=== PATIENT | male | born 1985 | race American Indian/Alaskan Native ===

== ENCOUNTER 2017-09-11 14:41 | Emergency (ER) | payer BC, OTHER ==
[~2017-09-11] VITALS: Ht 175.3 cm; Wt 117.9 kg
[~2017-09-11 14:41] MED LIST: CETIRIZINE HCL10 MG PO; FIBER350 GM PO; HYDROXYZINE PAM25 MG PO; PRILOSEC20 MG PO; TRIAMCINOLONE A15 GM TOP
== END 2017-09-11 15:00 | disposition home or self-care (01) ==
LOC: ED 14:41
DX: S61.412A Laceration without foreign body of left hand, initial encounter (principal); W18.30XA Fall on same level, unspecified, initial encounter

== ENCOUNTER 2019-12-01 18:27 | Emergency (ER) | payer BC, OTHER ==
[~2019-12-01] VITALS: Ht 175.3 cm; Wt 107.5 kg
[2019-12-01] MEDS ORDERED: ZYRTEC10 M3 (18:39)
[2019-12-01] MEDS ORDERED: FLONASE ALLERG9.9 ML NAS (18:40)
[2019-12-01] MEDS ORDERED: VITAMIN D22000 UNIT PO (18:40)
== END 2019-12-01 21:21 | disposition home or self-care (01) ==
LOC: ED 18:27
DX: F41.0 Panic disorder [episodic paroxysmal anxiety] (principal); Z88.0 Allergy status to penicillin; Z79.899 Other long term (current) drug therapy
CPT/HCPCS: 99283

== ENCOUNTER 2022-02-09 07:33 | Emergency (ER) | payer BC, OTHER ==
[~2022-02-09] VITALS: Ht 175.3 cm; Wt 107.5 kg
[~2022-02-09 07:33] MED LIST changes: +FLONASE ALLERG9.9 ML NAS; +VITAMIN D22000 UNIT PO; +ZYRTEC10 M3
== END 2022-02-09 08:10 | disposition home or self-care (01) ==
LOC: ED 07:33
DX: J06.9 Acute upper respiratory infection, unspecified (principal); Z88.0 Allergy status to penicillin; Z88.1 Allergy status to other antibiotic agents
CPT/HCPCS: 99283

== ENCOUNTER 2022-11-30 07:43 | Day surgery (SDC) | payer BC, OTHER ==
[~2022-11-30] VITALS: Ht 175.3 cm; Wt 109.8 kg
[~2022-11-30 07:43] MED LIST changes: +OMEPRAZOLE20 MG PO; +VENTOLIN HFA18 GM INH; +VITAMIN D350 MC3 PO; +ZESTRIL5 MG PO
--- NOTE | 2022-11-30 10:25 | NUR ---
11/30/22 1025 Ramila Mitchell 1004 PT ARRIVED IN PACU AWAKE WITH NO C/O'S. 1015 SNORING. REU. 1025 AWAKENS TO VERBAL STIMULI, THEN FALLS BACK TO SLEEP.
--- NOTE | 2022-12-01 07:24 | OR ---
[facility] [address], [place] [address] Signed DATE OF OPERATION: 11/30/2022 SURGEON: Jeanine Tolliver MD PREOPERATIVE DIAGNOSES: 1. Hiatal hernia 2013 at age 28. 2. Chronic epigastric abdominal pain. 3. Chronic heartburn. 4. Anxiety and stress. 5. Irritable bowel syndrome with constipation. POSTOPERATIVE DIAGNOSES: 1. Small hiatal hernia (40-37 cm). 2. GE junction at 37 cm. PROCEDURE: EGD with CLOtest and biopsies of the pyloric bulb, antrum and GE junction. ESTIMATED BLOOD LOSS: None. INDICATIONS: Olive is a 36-year-old gentleman, asked to see me for a repeat upper endoscopy. I helped him in 2013 at the age of 28. When we reviewed his records together, he has the identical symptoms from that time. We found just a small hiatal hernia with a little gastritis and negative CLOtest. He had done well with Versed and fentanyl. He feels that his symptoms are related to stress and his weight. He therefore started to alter his diet and exercising and he has lost 15 pounds. He said that has helped. He has been working with his primary care provider. He and his girlfriend now have two children, both under the age of 2. He said that is stressful as well. 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 He said that has been stressful and he is currently applying to change jobs. He told me about the anxiety and then his constipation. He said he uses Metamucil three days a week. He is afraid to use MiraLAX because it might cause diarrhea while he is at work. He has had a negative gallbladder ultrasound. He said he was never tested for sleep apnea. He said he still has epigastric abdominal pain with some heartburn. He said he was so anxious the other day that he could not even swallow food. He spent a lot of time talking to me about his anxiety. He did not realize this medication and counseling in that regard. He went home and talked to his girlfriend and found out she is on anxiety medication. He told me that this morning he has been scheduled to go see mental health counselor and more Electronically Signed By: JEANINE TOLLIVER MD 12/01/22 0724 PATIENT NAME: OLIVE BARBOSA III OPERATIVE REPORT DATE OF : 89 REPORT #: [id number] PHYSICIAN: JEANINE TOLLIVER MD PCP: [facility] REPORT IS CONFIDENTIAL AND NOT TO BE RELEASED WITHOUT AUTHORIZATION [facility] [address], [place] [address] Signed than likely start some medication. He seemed very excited to tell me that this morning. In the office, I gave him a brochure on upper endoscopy. He recalls the test well. There is risk including, but not limited to gas bloating, crampy abdominal pain, bleeding, perforation requiring surgery, and missed diagnosis. He recalls the need for IV conscious sedation. He had expressed understanding and wished to proceed. PROCEDURE NOTE: Olive was taken into our endoscopy suite and placed in the supine semi-recumbent position. The posterior oropharynx was anesthetized with lidocaine spray. A bite block was utilized for the case. He was given 8 mg of Versed and 100 mcg of fentanyl to cover the case. It took a while to overcome his anxiety. We were able to pass the scope then under direct visualization out into the third portion of the duodenum without difficulty. The duodenum and pyloric channel were unremarkable. There might have been just a little bit of irritation in his pyloric polyps. We took a biopsy in that area. We took an additional biopsy of the antrum for pathologic review as well as CLOtest. There were no ulcerations. Upon retroflexion of scope once again, we can see a small hiatal hernia. It measured from 40 cm back to 37 cm. The scope was then withdrawn up through the area of the GE junction, which was compliant without stricture. There was no gastric or esophageal varices. The Z-line has minimal disruption at 37 cm. There was no Lindsey's mucosa. There was no distal esophagitis. The middle and upper esophagus were unremarkable. After this, the gas was suctioned out. The colonoscope in the gastroscope removed. Olive tolerated his procedure well. RECOMMENDATIONS: I will see Olive back in my office in 7 to 14 days to review his results. It appears like he has discovered the etiology of the symptoms related to his anxiety. Jeanine Tolliver MD ALB/MODL /[id number] cc: [facility] [address] Jeanine Tolliver MD Electronically Signed By: JEANINE TOLLIVER MD 12/01/22 0724 PATIENT NAME: OLIVE BARBOSA III OPERATIVE REPORT DATE OF : 89 REPORT #: [id number] PHYSICIAN: JEANINE TOLLIVER MD PCP: [facility] REPORT IS CONFIDENTIAL AND NOT TO BE RELEASED WITHOUT AUTHORIZATION [facility] [address] [place], [place] [address] Signed Copies: JEANINE TOLLIVER MD ~ Electronically Signed By: JEANINE TOLLIVER MD 12/01/22 0724 PATIENT NAME: OLIVE BARBOSA JESSICA OPERATIVE REPORT DATE OF : 89 REPORT #: [id number] PHYSICIAN: JEANINE TOLLIVER MD PCP: [facility] REPORT IS CONFIDENTIAL AND NOT TO BE RELEASED WITHOUT AUTHORIZATION
== END 2022-11-30 11:00 | disposition home or self-care (01) ==
LOC: OPS 07:43 → DS 07:47 → OPS 08:55 → DS 09:45 → OPS 09:45
PROVIDERS: ATTEND Colon & Rectal Surgery
PROC: 0DB78ZX Excision of Stomach, Pylorus, Via Natural or Artificial Opening Endoscopic, Diagnostic (ICD-10-PCS; principal; 2022-11-30 09:30)
DX: K44.9 Diaphragmatic hernia without obstruction or gangrene (principal); K29.50 Unspecified chronic gastritis without bleeding; K20.90 Esophagitis, unspecified without bleeding; F41.9 Anxiety disorder, unspecified; I10 Essential (primary) hypertension; E66.9 Obesity, unspecified; Z68.33 Body mass index [BMI] 33.0-33.9, adult; Z88.0 Allergy status to penicillin; Z88.2 Allergy status to sulfonamides; Z79.899 Other long term (current) drug therapy
CPT/HCPCS: 36415; 87077; G0500; J2250; J3010; J7121

== ENCOUNTER 2022-12-27 08:32 | Emergency (ER) | payer BC, OTHER ==
[~2022-12-27] VITALS: Ht 175.3 cm; Wt 106.1 kg
[2022-12-27] MEDS ORDERED: ESCITALOPRAM OX10 MG PO (09:05)
== END 2022-12-27 09:35 | disposition home or self-care (01) ==
LOC: ED 08:32
DX: F41.9 Anxiety disorder, unspecified (principal); Z88.0 Allergy status to penicillin; Z88.2 Allergy status to sulfonamides; Z88.8 Allergy status to other drugs, medicaments and biological substances; Z79.899 Other long term (current) drug therapy
CPT/HCPCS: 99283

== ENCOUNTER 2022-12-30 17:06 | Emergency (ER) | payer BC, OTHER ==
[~2022-12-30] VITALS: Ht 175.3 cm; Wt 104.3 kg
[~2022-12-30 17:06] MED LIST changes: +ESCITALOPRAM OX10 MG PO
--- OUTSIDE RECORDS SUMMARY | 2022-12-30 17:14 | XMS ---
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 [facility] has no Care Guidelines for this patient. [place] VISIT COUNT (12 MO.) 6 [facility] TOTAL 6 NOTE: Visits indicate total known visits. ED/C VISIT TRACKING (12 MO.) [facility] COMPLAINT: - HEAD PAIN 12/27/2022 08:33 [facility] TYPE: Emergency COMPLAINT: - SHAKY 10/09/2022 20:50 [facility] [place] TYPE: Emergency COMPLAINT: - HEART RACING DIAGNOSES: - Unspecified asthma, uncomplicated - Palpitations - [facility] drug therapy - Allergy status to penicillin 10/07/2022 06:44 [facility] [place] TYPE: Emergency COMPLAINT: - HIGH HEART RATE, DIZZY, NILAM, Dann LAGUNAS ABD PAIN DIAGNOSES: - Left lower quadrant pain - Allergy status to penicillin - 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
--- NOTE | 2022-12-31 21:30 | EKG ---
[facility] [address] [facility] [place] [address] Signed Normal sinus rhythm Normal ECG No previous ECGs available Confirmed by BUFFY GAO MD ([id number]) on 12/31/2022 9:30:08 PM Electronically Signed By: BUFFY GAO MD 12/31/222129 PATIENT NAME: OLIVE BARBOSA JESSICA Electrocardiogram DATE OF : 89 PHYSICIAN: BUFFY GAO MD REPORT #: [id number] REPORT IS CONFIDENTIAL AND NOT TO BE RELEASED WITHOUT AUTHORIZATION
== END 2022-12-30 20:57 | disposition home or self-care (01) ==
LOC: ED 17:06
DX: R42 Dizziness and giddiness (principal); J45.909 Unspecified asthma, uncomplicated; Z88.0 Allergy status to penicillin; Z88.2 Allergy status to sulfonamides; Z88.1 Allergy status to other antibiotic agents; Z79.899 Other long term (current) drug therapy
CPT/HCPCS: 36415; 70450; 80053; 81001; 85025; 93005; 93010; 99284-25

== ENCOUNTER 2024-12-15 21:33 | Emergency (ER) | payer BC, OTHER ==
[~2024-12-15] VITALS: Ht 177.8 cm; Wt 109.0 kg
[~2024-12-15 21:33] MED LIST changes: +CRESTOR10 MG PO; +DRAMAMINE25 M1 PO; +HYDROXYZINE HCL25 MG PO; +LISINOPRIL10 MG PO; +NAPROSYN500 MG PO; +ONDANSETRON HCL4 MG PO
[2024-12-15] MEDS ORDERED: SODIUM CHLORIDE 0.9% 1,000 ML IV ONE (22:00)
[2024-12-15] MEDS ORDERED: MORPHINE SULFATE 4 MG/ML VIAL IV ONE (22:00)
[2024-12-15] MEDS ORDERED: ondansetron HCL 4 MG/2 ML VIAL IV ONE (22:00)
[2024-12-15 22:02] LABS: BASOPHILS 0.1 % (0-2); EOSINOPHILS 1.6 % (0-6); HEMOGLOBIN 16.3 g/dL (12.0-18.0); LYMPHOCYTES 14.1 % (24-44); MCH 29.9 (27-36); MCHC 34.7 g/dl (30-36); MCV 86.2 fl (81-99); MONOCYTES 8.9 % (0-12); NEUTROPHILS 75.3 % (39-80); PLATELET COUNT 195 K/uL (140-440); RBC 5.45 M/ul (4.3-5.7)
[2024-12-15 22:18] LABS: ALBUMIN 4.6 g/dL (3.4-5.0); ALBUMIN/GLOBULIN RATIO 1.39 (1.1-2.4); BILIRUBIN, TOTAL 1.2 mg/dL (0.2-1.0); BUN/CREATININE RATIO 12.35 (6.0-28.6); CALCIUM 9.1 mg/dL (8.5-10.1); CREATININE, SERUM 0.89 mg/dL (0.70-1.30); PROTEIN, TOTAL 7.9 g/dL (6.4-8.2)
[2024-12-15 23:18] LABS: BILIRUBIN, URINE NEGATIVE (negative); BLOOD/HGB, URINE NEGATIVE (Negative); KETONE, URINE SMALL (Negative); LEUK ESTERASE, URINE NEGATIVE (negative); NITRITE, URINE NEGATIVE (negative)
[2024-12-15] MEDS ORDERED: FLUTICASONE PRO16 GM NAS (23:18)
[2024-12-15] MEDS ORDERED: PANTOPRAZOLE SO20 MG PO (23:18)
[2024-12-15 23:33] LABS: CORONAVIRUS COVID-19 AG NEGATIVE (NEGATIVE); INFLUENZA A AG NEGATIVE (NEGATIVE); INFLUENZA B AG NEGATIVE (NEGATIVE)
[2024-12-16] MEDS ORDERED: ONDANSETRON ODT8 MG PO (01:47)
[2024-12-16] MEDS ORDERED: ONDANSETRON 4 MG HOME.PACK SL ONE (02:00)
[2024-12-16 02:13] VITALS: BP 134/72
== END 2024-12-16 02:13 | disposition home or self-care (01) ==
LOC: ED 21:33
PROVIDERS: Family Medicine
DX: K52.9 Noninfective gastroenteritis and colitis, unspecified (principal); J45.909 Unspecified asthma, uncomplicated; K21.9 Gastro-esophageal reflux disease without esophagitis; Z88.0 Allergy status to penicillin; Z88.2 Allergy status to sulfonamides; Z88.1 Allergy status to other antibiotic agents; Z79.899 Other long term (current) drug therapy
CPT/HCPCS: 36415; 74177; 76705; 80053; 81003; 83690; 85025; 96375; 99284-25; A9270; J2270; J2405; J7030; Q9967